=== PATIENT | female | born 1995 | race Caucasian/White ===

== ENCOUNTER 2018-04-02 13:05 | Inpatient (IN) | payer SELFPAY ==
[2018-04-02 13:24] VITALS: BMI 34.0
[2018-04-02 14:20] LABS: Hematocrit 37.7 % (37-47); Hemoglobin 12.3 g/dl (12.0-15.0); Mean Corp Hgb Conc 32.6 g/gl (32-36); Mean Corpuscular Hgb 28.7 pg (27.0-32.0); Mean Corpuscular Volume 88.1 fL (81-99); Mean Platelet Vol. 10.2 fl (6.2-12.0); Platelet Count 237 K/mm3 (150-450); RBC Distribution Width CV 13.6 % (11.6-14.6); RBC Distribution Width SD 43.7 fl (35.1-43.9); Red Blood Count 4.28 M/mm3 (4.2-5.4); White Blood Count 10.4 K/mm3 (4.4-11.0)
[2018-04-02 14:30] LABS: Scan Indicated on CBC? Y/N NO
[2018-04-02] MEDS: Lactated Ringers 1,000 ML 50 ML IV ×3 (14:47→19:45)
[2018-04-02] MEDS: fentaNYL-bupivacaine (epidural) 100 ML BAG EPIDURAL ×2 (15:25→19:43)
[2018-04-02] MEDS: Oxytocin 30 units/NS 500 ml 30 UNITS/500 ML IV.SOLN IV (15:52)
[2018-04-02 18:02] LABS: HIV - WCH Non-Reactive (Nonreactive)
--- NOTE | 2018-04-02 18:26 | PCM.PN.BLA ---
Progress Note LABOR PROGRESS NOTE No complaints. She is comfortable with epidural. AVSS GEN - NAD, AAO x 3 FHR 140, moderate variability, +accelerations, no decelertaions. TOCO 4/10 min SVE 2.5-3cm/75/-2, soft and midposition A/P: 22yo G1 @ 42 5/7wga for IOL with Cat I FHR -Butler bulb placed for further cervical ripening with 60cc NS - Continue pitocin as tolerated by mother and fetus -Maternal and statuses reassuring
[2018-04-02 18:32] LABS: Chlamydia Trachomatis by PCR Negative (Negative); Neisserai gonorrhoeae by PCR Negative (Negative); Probe Check PASS; Sample Adequacy Control PASS; Specimen Processing Control PASS
[2018-04-03] MEDS: Lactated Ringers 1,000 ML 50 ML IV (01:01)
--- NOTE | 2018-04-03 02:29 | PCM.PN.BLA ---
Progress Note LABOR PROGRESS NOTE Patient sleeping comfortably. AVSS GEN - NAD, AAO x 3 SVE 9/90/+2 per RN W Jay TOCO 4/10 min FHR 140, moderate variability, no accelerations, no decelerations A/P: 22yo G1 @ 42 6/7wga in labor, Cat II FHR -Will continue pitocin as tolerated by mother and fetus -Will plan to wake patient for repeat exam approximately 0300h.
--- NOTE | 2018-04-03 02:45 | PCM.PN.BLA ---
Progress Note LABOR PROGRESS NOTE Trisha is without complaints. AVSS GEN - NAD, AAO x 3 FHR 140, minimal variability, + variable decelerations, no accelerations TOCO 4/10 min SVE 9/90/+2 by my exam, cephalic A/P: 22 yo G1 @ 42 6/7wga in labor on pitocin, Cat II FHR -Will continue to monitor -Reassess cervical exam in 1-2 hours
[2018-04-03] MEDS: Ondansetron 4 MG/2 ML Vial IV (04:38)
[2018-04-03] MEDS: Oxytocin 30 units/NS 500 ml 30 UNITS/500 ML IV.SOLN 334 UNITS IV (04:45)
[2018-04-03] MEDS: Oxytocin 30 units/NS 500 ml 30 UNITS/500 ML IV.SOLN 167 UNITS IV (05:15)
--- NOTE | 2018-04-03 05:19 | PCM.OB.VAG ---
- Problem List (1) 42 weeks gestation of Status: Acute (2) Meconium in amniotic fluid Status: Acute (3) Vacuum extraction, delivered, current hospitalization Status: Acute Vaginal Delivery Maternal Presentation: Medically Indicated Induction Method of Induction: Pitocin Amniotic Membrane Rupture Type: Spontaneous Rupture of Membrane time: 04/03/18 0125h Amniotic Fluid Description: Thick meconium Final MARY: 03/14/18 Final MARY Source: US <20 weeks Gestational age: 43 Weeks and 1 Days Date of Procedure: 04/03/18 Pre-Operative Diagnosis: 42 6/7 wga, meconium Post-Operative Diagnosis: 42 6/7 wga, meconium Surgery/ Procedure Performed: Spontaneous Vaginal Delivery Anesthesiologist: Yuko Monzon Type of Anesthesia: Epidural Description of Procedure: Patient was FD/+3 station with tachycardia, Cat II FHR. By this time, pitocin had been previously discontinued and oxygen was administered. I advised her to proceed with vacuum delivery at this time for Cat II FHR. Reviewed with patient and indications, risks, benefits. Patient agreed to proceed. By my exam and fetus was OA and a bedside US was performed with confirmation of position. The vacuum was placed at the flexion point with suction applied to 500mmHg. The patient pushed to her preference with and without contractions. There were no vacuum pop-offs and 6 pulls with excellent descent and of the infant head. The vacuum was removed and the head delivered in [place]. A nuchal cord was reduced. The patient had waning effort, the anterior shoulder did not deliver beyond the acromnion and the patient became disorganized. Julian was employed and I subsequently attempted to deliver the posterior shoulder without success. I subsequently performed the Mills maneuver which was followed by spontaneous resolution and delivery of the . The had poor tone and limited respiratory effort. Thus, the cord was immediately clamped and cut and the infant transferred to the stabilette with the awaiting Pediatric Hospitalist, nursery personnel and respiratory therapist. Cord gases and cord blood specimen were obtained. The placenta delivered spontaneously after approximately 35 minutes and appeared intact on inspection. I attemped an intrauterine exam however the uterus had significantly clamped down with excellent tone and only the lower uterine segment was palpable. Few small clots were removed and the lower segment was palpably intact. There was no hemorrhage present. A first degree vaginal laceration with left labial extension was repaired with 3-0 Vicryl Rapide with improved hemostasis. Sponge counts were correct x 2. Infant weight 3930g Presentation: Vertex Placental Delivery Description: Spontaneous Placenta Disposition: [facility] Cord Vessel Description: 3 Vessels Nuchal Cord Compression: Without compression Cord Gases drawn per routine: ABG, VBG Cord Entanglement: Around neck x 1, loose Drain: Butler to straight drain Estimated Blood Loss: 300 ml A gender: Female (1 minute): 3 (5 minute): 8 - 9 at 10 minutes of life Laceration: Midline, Vaginal Extension/lac, 1st degree Medications given after delivery: IV Pitocin Complications: None
--- NOTE | 2018-04-03 05:47 | DCINST_ITS ---
Discharge Diet: No Restrictions Discharge Activity: Return to Normal Activity, May Shower May resume sexual activity in: 6 weeks Call your doctor if your incision/area has: Continuous Slow Oozing, Sudden Increased Bleeding, Increased Pain/ Swelling, Increased Redness, Foul Smelling Discharge Call your doctor if you observe: Fever of 101 or Higher, Inability to urinate, Inability to have a bowel movement, Using more than one pad per hour, Shortness of breath, Chest pain, Calf discomfort, Uncontrolled pain Additional Instructions: If you experience any of the following, contact your healthcare provider. * Bleeding that soaks a pad every hour for 2 hours * Fever 100.4 or higher * Unrelieved incision or abdominal pain * Swelling, redness, discharge or bleeding from your incision or episiotomy site * Your incision begins to separate * Problems urinating (including inability to urinate or burning while urinating) . * Visual changes * Severe headache * Flu-like symptoms * Pain or redness in one of both of your breasts * Pain, warmth, tenderness or swelling in your legs, especially the calf area * Frequent nausea and vomiting * Symptoms of depression or anxiety If you experience any of the following, call 911 or go to the nearest Emergency Room. * Chest pain * Problems breathing * Seizure activity * Partial or complete paralysis of a body part, slurred speech, weakness or drooping of the face, or a sudden inability to walk or hold your balance Allergies/Adverse Reactions: Allergies No Known Allergies Allergy (Unverified 04/02/18 14:16) Medications to take at Discharge Vits [Prenatabs FA ] 1 tab PO DAILY 04/02/18 Ibuprofen 600 mg PO TID PRN #30 tab 04/03/18 The following prescriptions were given: Ibuprofen 600 mg PO TID PRN #30 tab PRN Reason: Pain Please Follow Up With: Tanya Post MD Primary Care Physician: Tristan Larson DO [Primary Care Provider] - Test Results: Test results from this visit will be discussed in further detail at your follow- up appointment, if applicable.
[2018-04-03] MEDS: Ibuprofen 600 MG Tablet PO (06:42)
[2018-04-03 08:00] VITALS: BP 111/59; PULSE 83; RESP 18; TEMP 36.6; O2SAT 96
--- NOTE | 2018-04-03 09:30 | CASEMGMT ---
Social Work Note See attached assessment. Face to face with pt as requested via consult. Introduced self and role at [facility]. The MOB reports to live with her spouse of one year in a two-story home with significant family support locally. Claims to have completed 8th grade and is able to read/write. MOB is of [facility] affiliation and has supports through her community. Educate to area resources such as JFS, Counseling and HMG and MOB declines. Information provided and pt made aware that SW is available if she changes her mind. MOB appropriate with throughout assessment and is planning to breast feed. At this time nursing states they do not know that she is not receiving teachings as she only had the infant this morning. At this time SW does not have concerns with MOB and infant returning home. MOB denies a hx of mental health diagnoses. Review symptoms of anxiety/depression and MOB indicates symptoms of depression. States that she talks to her when she feels this way and it manages the symptoms. Educate to counseling and the pt declines. Educate to PPD and provide with information. MOB expresses understanding. Discuss HMG services and MOB declines this as well. Again, provide with the information and make MOB aware that SW is available if needs arise. Plan: Home Fide Anderson, GATE WATCHMAN, SENIOR GAME DESIGNER
[2018-04-03] MEDS: Prenatal Vits Tablet 1 TABLET PO (11:04)
[2018-04-03 11:23] VITALS: BP 90/51; PULSE 69; RESP 16; TEMP 36.4; O2SAT 97
[2018-04-03 16:00] VITALS: BP 138/70; PULSE 86; RESP 18; TEMP 36.7; O2SAT 97
[2018-04-03 20:15] VITALS: BP 130/62; PULSE 93; RESP 16; TEMP 37.5
[2018-04-03 23:30] VITALS: BP 118/66; PULSE 101; RESP 16; TEMP 37.2
[2018-04-04 04:20] VITALS: BP 110/59; PULSE 82; RESP 16; TEMP 37.7
[2018-04-04] MEDS: Acetaminophen 325 MG Tablet PO (04:28)
[2018-04-04 06:10] VITALS: TEMP 36.4
[2018-04-04 08:45] VITALS: BP 102/55; PULSE 75; RESP 16; TEMP 36.6
--- NOTE | 2018-04-04 09:34 | PCM.PN.BLA ---
Progress Note Visited patient room. Patient in shower. Will return to assess.
--- NOTE | 2018-04-04 09:57 | PCM.PN.OB ---
Patient Problems: Active and Suspected Problems 42 weeks gestation of (Acute) Meconium in amniotic fluid (Acute) Vacuum extraction, delivered, current hospitalization (Acute) Subjective: No issues overnight. She is voiding without discomfort and has no complaints. She is . Objective: avss - Physical Exam General: Alert, Oriented x3, Cooperative HEENT: Atraumatic, Normocephalic Lungs: Clear to auscultation, Normal air movement Cardiovascular: Regular rate, Regular Rhythm, Normal S1, Normal S2 Abdomen: Bowel Sounds Present, Soft, Non Tender, - - Fundus firm and nontender, lochia moderate Extremities: No edema, No Calf Tenderness Neurological: Neuro grossly intact Psych/Mental Status: Normal Affect, Appropriate, Alert and oriented to time, place, person, mood and affect Vital Signs Temp Pulse Resp BP Pulse Ox 97.9 F 75 16 102/55 L 97 04/04/18 08:45 04/04/18 08:45 04/04/18 08:45 04/04/18 08:45 04/03/18 16:00 Oxygen Delivery Method Room Air Weight: 89.981 kg Body Mass Index (BMI) 34.0 Intake and Output for Last 24 Hours 04/02/18 04/03/18 04/04/18 23:59 23:59 23:59 Intake Total 2250 / 2250 4615 / 4615 Output Total 750 / 750 3200 / 3200 Balance 1500 / 1500 1415 / 1415 Medical Necessity - Tobacco Use Smoking Status: Never smoker Assessment/Plan All Active Problems 42 weeks gestation of (Acute) Meconium in amniotic fluid (Acute) Vacuum extraction, delivered, current hospitalization (Acute)
[2018-04-04 14:00] VITALS: BP 113/59; PULSE 82; RESP 16; TEMP 37
[2018-04-04] MEDS: Prenatal Vits Tablet 1 TABLET PO (19:04)
[2018-04-04 19:45] VITALS: BP 116/59; PULSE 85; RESP 18; TEMP 36.8
[2018-04-05 02:20] VITALS: BP 109/56; PULSE 74; RESP 16; TEMP 36.9
[2018-04-05 08:31] VITALS: BP 102/63; PULSE 90; RESP 16; TEMP 36.8; O2SAT 96
--- NOTE | 2018-04-05 08:38 | PCM.PN.OB ---
Patient Problems: Active and Suspected Problems 42 weeks gestation of (Acute) Meconium in amniotic fluid (Acute) Vacuum extraction, delivered, current hospitalization (Acute) Subjective: No issues overnight. c/o cramping this morning. continues to nurse well. Objective: avss - Physical Exam General: Alert, Oriented x3, Cooperative HEENT: Atraumatic, Normocephalic Lungs: Clear to auscultation, Normal air movement Cardiovascular: Regular rate, Regular Rhythm, Normal S1, Normal S2 Abdomen: Soft, Non Tender, Non-Distended, - - Fundus firm and nontender, lochia moderate Extremities: No edema, No Calf Tenderness Neurological: Neuro grossly intact Psych/Mental Status: Normal Affect, Appropriate, Alert and oriented to time, place, person, mood and affect Vital Signs Temp Pulse Resp BP Pulse Ox 98.2 F 90 16 102/63 96 04/05/18 08:31 04/05/18 08:31 04/05/18 08:31 04/05/18 08:31 04/05/18 08:31 Oxygen Delivery Method Room Air Weight: 89.981 kg Body Mass Index (BMI) 34.0 Intake and Output for Last 24 Hours 04/03/18 04/04/18 04/05/18 23:59 23:59 23:59 Intake Total 4615 / 4615 Output Total 3200 / 3200 Balance 1415 / 1415 Medical Necessity - Tobacco Use Smoking Status: Never smoker Assessment/Plan All Active Problems 42 weeks gestation of (Acute) Meconium in amniotic fluid (Acute) Vacuum extraction, delivered, current hospitalization (Acute) 22yo PPD#2 s/p VAVD doing well. -Rh positive -Routine care -Case management consultation pending -D/C home today
[2018-04-05] MEDS: Prenatal Vits Tablet 1 TABLET PO (11:49)
[2018-04-05 11:52] VITALS: BP 114/59; PULSE 86; RESP 18; TEMP 36.4; O2SAT 99
== END 2018-04-05 13:35 | disposition home or self-care (01) | DRG 775 ==
PROVIDERS: Admitting Provider Obstetrics & Gynecology; Family Provider Family Medicine; PCP Family Medicine; Visit Provider Obstetrics & Gynecology
DX: O76 Abnormality in fetal heart rate and rhythm complicating labor and delivery (principal); O70.0 First degree perineal laceration during delivery; O69.81X0 Labor and delivery complicated by cord around neck, without compression, not applicable or unspecified; Z37.0 Single live birth; O48.1 Prolonged pregnancy; O77.0 Labor and delivery complicated by meconium in amniotic fluid; Z3A.49 Greater than 42 weeks gestation of pregnancy
CPT/HCPCS: 59025; 59050; 76815; 85027; 86703; 86850; 86900; 87491; 87591; 99218; J7050; J7120; G0378; J2405

== ENCOUNTER → 2019-07-20 16:41 | Outpatient (CLI) | payer SELFPAY ==
[2019-07-20 17:36] LABS: Color, Urine Yellow (Yellow); Glucose, Dipstick Normal (Normal); Ketone-Dipstick 5 mg/dl (Negative); Leukocyte Esterase-Dipstick 500 /ul (Negative); Nitrite-Dipstick Negative (Negative); Occult Blood-Urine Negative /ul (Negative); Protein-Dipstick Negative (Negative); Urine Bilirubin Dipstick Negative (Negative); Urine Clarity Clear (Clear); Urine Urobilinogen Normal (Normal)
[2019-07-20 17:40] LABS: Absolute Lymphocyte Count 1.66 X10^3/uL (0.83-4.51); Absolute Neutrophil Count 6.9 X10^3/uL (2.0-7.7); Basophil# 0.03 X10^3/uL; Basophil% 0.3 % (0-1); Eosinophil# 0.17 X10^3/uL; Eosinophils% 1.8 % (0-5); Hematocrit 35.4 % (37-47); Hemoglobin 11.7 g/dL (12.0-15.0); Lymphocyte # 1.66 X10^3/ul (4.0); Lymphocyte % 17.8 % (19-41); Mean Corp Hgb Conc 33.1 g/dL (32-36); Mean Corpuscular Hgb 27.7 pg (27.0-32.0); Mean Corpuscular Volume 83.9 fL (81-99); Mean Platelet Vol. 9.7 fl (6.2-12.0); Monocyte# 0.53 X10^3/uL; Monocyte% 5.7 % (0-10); NRBC Flagged by Analyzer 0 % (0-5); Platelet Count 280 K/mm3 (150-450); RBC Distribution Width CV 13.1 % (11.6-14.6); RBC Distribution Width SD 39.7 fl (35.1-43.9); Red Blood Count 4.22 M/mm3 (4.2-5.4); White Blood Count 9.3 K/mm3 (4.4-11.0)
[2019-07-20 18:16] LABS: Thyroid Stim Hormone (TSH) 0.82 uIU/mL (0.358-3.74)
[2019-07-20 18:19] LABS: Amphetamine Urine VISTA NEGATIVE (<1000 ng/mL); Barbiturate Urine VISTA NEGATIVE (< 200 ng/mL); Benzodiazepine Urine VISTA NEGATIVE (< 200 ng/mL); Cocaine Urine VISTA NEGATIVE (< 300 ng/mL); Ecstacy Urine VISTA NEGATIVE (< 500 ng/mL); Methadone Urine VISTA NEGATIVE (< 300 ng/mL); PCP Urine VISTA NEGATIVE (< 25 ng/mL); THC Urine VISTA NEGATIVE (< 50 ng/mL); Vista UDS pH Range 5
[2019-07-20 21:28] LABS: Chlamydia Trachomatis by PCR Negative (Negative); Neisserai gonorrhoeae by PCR Negative (Negative); Probe Check PASS; Sample Adequacy Control PASS; Specimen Processing Control PASS
[2019-07-21 10:15] LABS: HIV - WCH Non-Reactive (Nonreactive); Hepatitis B Surface Antigen Non-Reactive (Nonreactive); Hepatitis C Antibody Non-Reactive (Nonreactive); Rubella IgG > 500.0 IU/mL
[2019-07-22 02:37] LABS: Prenatal RPR NONREACTIVE (NONREACTIVE)
== END ==
PROVIDERS: Visit Provider Obstetrics & Gynecology
DX: Z11.3 Encounter for screening for infections with a predominantly sexual mode of transmission (principal); Z34.82 Encounter for supervision of other normal pregnancy, second trimester
CPT/HCPCS: 36415; 80307; 81002; 84443; 85025; 86703; 86762; 86803; 87340; 87491; 87591

== ENCOUNTER → 2019-09-14 09:49 | Outpatient (CLI) | payer SELFPAY ==
[2019-09-14 10:44] LABS: Hematocrit 35.8 % (37-47); Hemoglobin 11.6 g/dL (12.0-15.0); Mean Corp Hgb Conc 32.4 g/dL (32-36); Mean Corpuscular Hgb 28.5 pg (27.0-32.0); Mean Platelet Vol. 9.3 fl (6.2-12.0); Platelet Count 266 K/mm3 (150-450); RBC Distribution Width CV 13.9 % (11.6-14.6); Red Blood Count 4.07 M/mm3 (4.2-5.4); White Blood Count 8.8 K/mm3 (4.4-11.0)
[2019-09-14 11:00] LABS: Glucose Challenge Gest 1H 50g 62 mg/dL (70-140)
== END ==
PROVIDERS: Visit Provider Obstetrics & Gynecology
DX: Z34.82 Encounter for supervision of other normal pregnancy, second trimester (principal)
CPT/HCPCS: 36415; 82950; 85027

== ENCOUNTER → 2019-11-16 | Outpatient (CLI) | payer SELFPAY | END | disposition home or self-care (01) | LOC: LABSPEC 16:53 | PROVIDERS: Visit Provider Obstetrics & Gynecology | DX: Z36.85 Encounter for antenatal screening for Streptococcus B (principal) | CPT/HCPCS: 87081 ==

== ENCOUNTER 2019-12-07 15:00 | Inpatient (IN) | payer SELFPAY ==
[2019-12-07 15:30] VITALS: BMI 37.9
[2019-12-07] MEDS: Lactated Ringers 1,000 ML 50 ML IV (15:45)
[2019-12-07 15:52] VITALS: BP 108/57; PULSE 74; TEMP 36.6
[2019-12-07 16:03] LABS: Absolute Lymphocyte Count 1.41 X10^3/uL (0.83-4.51); Basophil# 0.02 X10^3/uL; Basophil% 0.2 % (0-1); Eosinophil# 0.09 X10^3/uL; Eosinophils% 1.1 % (0-5); Hematocrit 38.6 % (37-47); Hemoglobin 12.8 g/dL (12.0-15.0); Lymphocyte # 1.41 X10^3/ul (4.0); Lymphocyte % 16.9 % (19-41); Mean Corp Hgb Conc 33.2 g/dL (32-36); Mean Corpuscular Hgb 28.1 pg (27.0-32.0); Mean Corpuscular Volume 84.8 fL (81-99); Monocyte# 0.77 X10^3/uL; Monocyte% 9.2 % (0-10); NRBC Flagged by Analyzer 0 % (0-5); Neutrophil # 6.02 X10^3/uL (2.7-7.7); Neutrophil % 72.2 % (47-70); Platelet Count 335 K/mm3 (150-450); RBC Distribution Width CV 13.7 % (11.6-14.6); RBC Distribution Width SD 42.4 fl (35.1-43.9); Red Blood Count 4.55 M/mm3 (4.2-5.4); White Blood Count 8.3 K/mm3 (4.4-11.0)
[2019-12-07 16:50] VITALS: BP 113/58; PULSE 78
[2019-12-07 17:11] VITALS: BP 108/53; PULSE 81
[2019-12-07] MEDS: miSOPROStol 25 MCG TABLET VAGINAL (17:11)
--- NOTE | 2019-12-07 18:10 | HP.PCM_ITS ---
- Problem List (1) 39 weeks gestation of Status: Acute (2) Oligohydramnios Status: Acute Qualifiers: Fetus number: single or unspecified fetus Trimester: third trimester Qualified Code(s): O41.03X0 - Oligohydramnios, third trimester, not applicable or unspecified Comment: decreased FM. History Date of Admission: 12/07/19 Final MARY: 12/09/19 Final MARY Source: US <20 weeks Gestational age: 39 Weeks and 5 Days History of this : This is a 24 year-old, G [2], P [1], at 39 5/7 weeks gestational age sent from office with 2 weeks of persistent decreased FM and oligohydramnios with MARY 5cm. Medical History: Medical History (Last Updated 12/07/19 @ 18:[address] Tanya Post MD) Seasonal allergies J30.2 Allergies No Known Allergies Allergy (Unverified 12/07/19 15:34) Home Medications: Home Medications Vits [Prenatabs FA ] 1 tab PO 4X/DAY 04/02/18 Smoking Status: Former smoker Alcohol: None Number of Fetus(es): 1 NST - FHR Rate Baby A Baseline: 150 Variability:: Moderate Accelerations:: 15 x 15 Decelerations:: None NST Reactive:: Yes FHR Category:: Category I Uterine Activity:: 0/10 History Past Pregnancies: Past Pregnancies Delivery Date Name GA/ Weeks Outcome Route Wt Sex Labor Length Anesthesia Delivery Location Provider FOB 03/2018 sharon 42 Living VAVD [id number] F 12 Epidural [facility] Nilda Valadez Labs: Mom's Problem List Problem Status Onset Code 39 weeks gestation of Acute Z3A.39 Oligohydramnios Acute O41.00X0 Mom's Labs & Results 12/07/19 12/07/19 15:45 15:45 WBC 8.3 RBC 4.55 Hgb 12.8 Hct 38.6 MCV 84.8 MCH 28.1 MCHC 33.2 RDW Std Deviation 42.4 RDW Coeff of [place] 13.7 Plt Count 335 MPV 10.0 Immature Gran % (Auto) 0.400 Neut % (Auto) 72.2 H Lymph % (Auto) 16.9 L [place] % (Auto) 9.2 Eos % (Auto) 1.1 Baso % (Auto) 0.2 Absolute Neuts (auto) 6.0 Absolute Lymphs (auto) 1.41 Nucleated RBC % 0 Blood Type O POSITIVE Antibody Screen NEGATIVE Course Did the patient receive Yes care? Labs Blood Type: O RH: POSITIVE RPR/VDRL/Syphilis Nonreactive Rubella status Immune HbSAg Negative Date Done: 07/20/19 Chlamydia Negative Gonorrhea Negative HIV/AIDS Non-Reactive Group B Strep: Negative Current Obstetrical History Gestational Diabetes No Incompetent Cervix No Infertility No IUGR No Macrosomia No Hypertension/Pre-eclampsia No Placenta Previa/Abruption No PTL/PROM No Uterine anomaly No Oligohydramnios Yes Polyhydramnios No Multiple gestation No Past Medical History Asthma No Diabetes No Hypertension No Heart disease No Mitral valve prolapse No Neurologic/Seizure disorder/ No Migraines Kidney disease No Liver disease No Varicosities No Clotting disorders/Hx of DVT No Thyroid Dysfunction No Other medical diseases No Psychiatric disorders No Major trauma No Abnormal PAP smear No Sleep apnea No Mammogram in the last 2 years No Medications Taken During Dose/Freq.: [GentleBirth] 2-3x a day Last Date/Time of Medication 12/07/2019 Taken: [GentleBirth] Reason for taking medication [ GentleBirth] Social History Marital Status: Alleged father Rory Mcdaniel Hx Smoking No Smoking Status Former smoker Expected Delivery Method: Spontaneous Vaginal Number of Visits: 10 Physical Exam Vitals: Vital Signs Temp Pulse BP 97.8 F 81 108/53 L 12/07/19 15:52 12/07/19 17:11 12/07/19 17:11 General: Alert, Oriented x3, Cooperative, No apparent distress HEENT: Atraumatic, Normocephalic Cardiovascular: Regular rate, Regular Rhythm Lungs: Clear to auscultation, Normal air movement Abdomen: Soft, Non Tender, Non-Distended, Gravid Extremities:: No edema Neurological: Neuro grossly intact SENIOR TECHNICAL SUPPORT ANALYST: Normal external genitalia Estimated gestational size: Appropriate for gestational size Presentation: Cephalic Cervix Dilation (cm): 2 Station: -3 Effacement (%): 25 Assessment/Plan All Active Problems (Last Updated 12/07/19 @ 18:[address] Tanya Post MD) 39 weeks gestation of (Acute) Oligohydramnios (Acute) This is a 24 year-old, G [2], P [1], at 39 5/7 weeks gestational age with oligohydramnios, decreased FM for induction of labor. -Cat I FHR -Cytotec induction -Continuous monitoring
[2019-12-07 18:23] VITALS: BP 113/55; PULSE 86; TEMP 36.7
[2019-12-07 19:27] VITALS: BP 113/59; PULSE 77; PULSE 82; TEMP 37.3; O2SAT 97
[2019-12-07 21:10] VITALS: BP 115/67; PULSE 81; PULSE 82; TEMP 37.1; O2SAT 96
[2019-12-07] MEDS: Lactated Ringers 500 ML 999 ML IV (21:34)
[2019-12-08] VITALS (54 sets, daily range): BP systolic 85–153; BP diastolic 44–75; PULSE 67–146; RESP 16–18; TEMP 36.2–37.6; O2SAT 81–100
[2019-12-08] MEDS: miSOPROStol 50 MCG TABLET VAGINAL (01:53)
[2019-12-08] MEDS: fentaNYL 100 MCG/2 ML Ampul IV (04:56)
--- NOTE | 2019-12-08 06:39 | PCM.PN.BLA ---
Progress Note LABOR PROGRESS NOTE Patient reports discomfort with contractions. AVSS GEN - NAD, AAO x 3 FHR 140, moderate variability, + accelerations, no decelerations TOCO 3/10 min 4/50/-3, moderate and midposition A/P: 24yo @ 39 6/7wga, IOL with oligohydramnios, decreased FM, Cat I FHR --Amniotomy performed with scant, clear fluid --Will start pitocin if not in active labor 6 hours after last cytotec (approx 0830h) --Maternal and status reassuring STROKE Vital Signs/Narrative: Vital Signs Temp Pulse BP Pulse Ox 12/08/19 05:09 97.9 F 68 141/71 H 96 12/08/19 04:26 97.7 F L 69 129/59 H 97
[2019-12-08] MEDS: Lactated Ringers 500 ML 999 ML IV ×2 (06:51→08:35)
[2019-12-08] MEDS: fentaNYL-bupivacaine (epidural) 100 ML BAG EPIDURAL (08:24)
[2019-12-08] MEDS: ePHEDrine Sulfate 50 MG/ML Ampul 10 MG IV (08:37)
[2019-12-08] MEDS: ePHEDrine Sulfate 50 MG/ML Ampul 10 MG IM (08:38)
[2019-12-08] MEDS: Lactated Ringers 1,000 ML 200 ML IV (08:40)
[2019-12-08] MEDS: Oxytocin 30 units/NS 500 ml 30 UNITS/500 ML IV.SOLN 334 UNITS IV (12:48)
--- NOTE | 2019-12-08 13:00 | PCM.OPRPT ---
Problem List (1) 39 weeks gestation of Status: Acute (2) Oligohydramnios Status: Acute Qualifiers: Fetus number: single or unspecified fetus Trimester: third trimester Qualified Code(s): O41.03X0 - Oligohydramnios, third trimester, not applicable or unspecified Comment: decreased FM. Vaginal Delivery Maternal Presentation: Medically Indicated Induction Method of Induction: Amniotomy, Cytotec Medical Reason for Induction: - - oligohydramnios, decreased movement Rupture of Membrane time: 0635h 12/08/19 Amniotic Fluid Description: Clear Final MARY: 12/09/19 Final MARY Source: US >20 weeks Gestational age: 39 Weeks and 6 Days Date of Procedure: 12/08/19 Pre-Operative Diagnosis: 39 6/7wga, oligohydramnios Post-Operative Diagnosis: 39 6/7wga, oligohydramnios Surgery/ Procedure Performed: Spontaneous Vaginal Delivery Anesthesiologist: Dinesh Tran Type of Anesthesia: Epidural Description of Procedure: Patient was FD/+4 on my arrival. Pushed to deliver in [place]. mouth and nares suctioned on perineum. Shoulder delivered with ease to reveal a vigorous male . The was place don the maternal abdomen and further attended by nursery personnel. The cord was doubly clamped and cut at approximately 3 minutes of life. Cord blood specimen obtained. The placenta delivered spontaneously and appeared intact on inspection. First degree perineal laceration repaired with 3-0 Vicryl Rapide. Excellent hemostasis and fundus firm at the umbilicus. Presentation: Vertex Placental Delivery Description: Spontaneous Placenta Disposition: [facility] Cord Vessel Description: 3 Vessels Nuchal Cord Compression: Without compression Cord Entanglement: None Estimated Blood Loss: 300 ml A gender: Male (1 minute): 8 (5 minute): 9 Episiotomy Description: None Laceration: Midline, Perineal Extension/lac, 1st degree Medications given after delivery: IV Pitocin Complications: None
[2019-12-08] MEDS: Acetaminophen 500 MG Tablet 1000 MG PO (22:47)
[2019-12-09 00:44] VITALS: BP 111/53; PULSE 73; RESP 18; TEMP 36.1
[2019-12-09 04:28] VITALS: BP 104/59; PULSE 66; RESP 18; TEMP 36.2
--- NOTE | 2019-12-09 06:52 | PCM.PN.OB ---
Patient Problems: Active and Suspected Problems (Last Updated 12/07/19 @ 18:[address] Tanya Post MD) 39 weeks gestation of (Acute) Oligohydramnios (Acute) decreased FM. Subjective: No issues overnight. Reports cramping intermittently, but tolerable. Denies heavy lochia. latched and nursed well yesterday. Requests discharge to home today. Objective: AVSS - Physical Exam Vitals/I&O's: Vital Signs Temp Pulse Resp BP Pulse Ox 97.1 F L 66 18 104/59 L 97 12/09/19 04:28 12/09/19 04:28 12/09/19 04:28 12/09/19 04:28 12/08/19 15:51 Oxygen Delivery Method Room Air Weight: 94 kg Body Mass Index (BMI) 37.9 Intake and Output for Last 24 Hours 12/07/19 12/08/19 12/09/19 23:59 23:59 23:59 Intake Total 1557.23 / 1557.23 4941.66 / 4941.66 Output Total 975 / 975 4400 / 4400 Balance 582.23 / 582.23 541.66 / 541.66 General: Alert, Oriented x3, Cooperative, No apparent distress HEENT: Atraumatic, Normocephalic Lungs: Clear to auscultation, Normal air movement Cardiovascular: Regular rate, Regular Rhythm, Normal S1, Normal S2 Abdomen: Soft, Non Tender, Non-Distended, - - Fundus firm and nontender, lochia moderate Extremities: No edema, No Calf Tenderness Neurological: Neuro grossly intact Psych/Mental Status: Normal Affect, Appropriate, Alert and oriented to time, place, person, mood and affect Current Medications Acetaminophen (Tylenol) 1,000 mg PO Q8H PRN PRN PRN Reason: Pain Score 1-3/10 Last Admin: 12/08/19 22:47 Dose: 1,000 mg Documented by: Bisacodyl (Dulcolax) 10 mg RECTAL UD PRN PRN Reason: If no BM Dibucaine (Dibucaine) 1 applic TOPICAL TID PRN PRN; Protocol PRN Reason: Discomfort Hydrocortisone (Hytone) 1 applic TOPICAL TID PRN PRN; Protocol PRN Reason: Discomfort Ibuprofen (Motrin) 600 mg PO Q6H PRN PRN PRN Reason: Pain Score 1-3/10 Methylergonovine Maleate (Methergine) 0.2 mg IM X1 PRN PRN Reason: Excess bleeding/uterine atony Ondansetron HCl (Zofran) 4 mg IV Q4H PRN PRN PRN Reason: NAUSEA Senna/Docusate Sodium (Senokot-S, Paty-Colace) 1 - 2 tablet PO DAILY PRN PRN PRN Reason: Constipation Simethicone (Mylicon) 80 mg PO PCHS PRN PRN Reason: Indigestion/Stomach pain Sodium Chloride () 5 - 15 ml IV UD PRN PRN Reason: SALINE FLUSH Medical Necessity - Tobacco Use Smoking Status: Former smoker Assessment/Plan All Active Problems (Last Updated 12/07/19 @ 18:[address] Tanya Post MD) 39 weeks gestation of (Acute) Oligohydramnios (Acute) This is a 24 year-old, G [2], P [2] PPD#1 s/p doing well. -Rh positive - -Routine care -Plan for d/c home this afternoon if infant cleared
--- NOTE | 2019-12-09 06:57 | DCINST_ITS ---
Discharge Diet: No Restrictions Discharge Activity: Return to Normal Activity, May Shower, May Take a Tub Bath May resume sexual activity in: 4-6 weeks Lifting Restrictions: 10-20 lb Suture Line Care: Avoid Pulling/Pushing Additional Instructions: If you experience any of the following, contact your healthcare provider. * Bleeding that soaks a pad every hour for 2 hours * Fever 100.4 or higher * Unrelieved incision or abdominal pain * Swelling, redness, discharge or bleeding from your incision or episiotomy site * Your incision begins to separate * Problems urinating (including inability to urinate or burning while urinating). * Visual changes * Severe headache * Flu-like symptoms * Pain or redness in one of both of your breasts * Pain, warmth, tenderness or swelling in your legs, especially the calf area * Frequent nausea and vomiting * Symptoms of depression or anxiety If you experience any of the following, call 911 or go to the nearest Emergency Room. * Chest pain * Problems breathing * Seizure activity * Partial or complete paralysis of a body part, slurred speech, weakness or drooping of the face, or a sudden inability to walk or hold your balance You may take an over the counter pain medication such as Naproxen (Aleve) or Ibuprofen (Motrin or Advil) for pain. Allergies/Adverse Reactions: Allergies No Known Allergies Allergy (Unverified 12/07/19 15:34) Medications to take at Discharge Vits [Prenatabs FA ] 1 tab PO 4X/DAY 04/02/18 Please Follow Up With: Tanya Post MD When: 6 weeks Primary Care Physician: Care Physician,No Primary [Primary Care Provider] - Test Results: Test results from this visit will be discussed in further detail at your follow- up appointment, if applicable.
--- NOTE | 2019-12-09 06:57 | PCM.DCVAG ---
Discharge Diet: No Restrictions Discharge Activity: Return to Normal Activity, May Shower, May Take a Tub Bath May resume sexual activity in: 4-6 weeks Lifting Restrictions: 10-20 lb Suture Line Care: Avoid Pulling/Pushing Additional Instructions: If you experience any of the following, contact your healthcare provider. Bleeding that soaks a pad every hour for 2 hours Fever 100.4 or higher Unrelieved incision or abdominal pain Swelling, redness, discharge or bleeding from your incision or episiotomy site Your incision begins to separate Problems urinating (including inability to urinate or burning while urinating). Visual changes Severe headache Flu-like symptoms Pain or redness in one of both of your breasts Pain, warmth, tenderness or swelling in your legs, especially the calf area Frequent nausea and vomiting Symptoms of depression or anxiety If you experience any of the following, call 911 or go to the nearest Emergency Room. Chest pain Problems breathing Seizure activity Partial or complete paralysis of a body part, slurred speech, weakness or drooping of the face, or a sudden inability to walk or hold your balance You may take an over the counter pain medication such as Naproxen (Aleve) or Ibuprofen (Motrin or Advil) for pain. Allergies/Adverse Reactions: Allergies No Known Allergies Allergy (Unverified 12/07/19 15:34) Medications to take at Discharge Vits [Prenatabs FA ] 1 tab PO 4X/DAY 04/02/18 Please Follow Up With: Tanya Post MD When: 6 weeks Primary Care Physician: Care Physician,No Primary [Primary Care Provider] - Test Results: Test results from this visit will be discussed in further detail at your follow-up appointment, if applicable.
[2019-12-09 08:17] VITALS: BP 116/53; PULSE 72; RESP 16; TEMP 36.1; O2SAT 96
[2019-12-09 14:15] VITALS: BP 114/56; PULSE 72; RESP 16; TEMP 36.3; O2SAT 97
[2019-12-09 17:45] VITALS: BP 114/62; PULSE 70; RESP 16; TEMP 36.1
[2019-12-09 20:00] VITALS: BP 123/66; PULSE 76; RESP 16; TEMP 36.4; O2SAT 96
== END 2019-12-09 20:40 | disposition home or self-care (01) | DRG 807 ==
PROVIDERS: Admitting Provider Obstetrics & Gynecology; Referring Provider Obstetrics & Gynecology; Visit Provider Obstetrics & Gynecology
DX: O41.03X0 Oligohydramnios, third trimester, not applicable or unspecified (principal); Z37.0 Single live birth; O70.0 First degree perineal laceration during delivery; O36.8130 Decreased fetal movements, third trimester, not applicable or unspecified; Z3A.39 39 weeks gestation of pregnancy; Z87.891 Personal history of nicotine dependence
CPT/HCPCS: 59025; 59050; 85025; 86850; 86900; 86901; 99218; J7120; G0378

== ENCOUNTER → 2021-03-20 15:13 | Outpatient (CLI) | payer SELFPAY ==
[2021-03-20 15:53] LABS: Absolute Lymphocyte Count 1.75 X10^3/uL (0.83-4.51); Absolute Neutrophil Count 7.8 X10^3/uL (2.0-7.7); Basophil# 0.03 X10^3/uL; Basophil% 0.3 % (0-1); Eosinophil# 0.16 X10^3/uL; Eosinophils% 1.5 % (0-5); Hematocrit 36.2 % (37-47); Hemoglobin 12.1 g/dL (12.0-15.0); Lymphocyte # 1.75 X10^3/ul (0.83-4.51); Lymphocyte % 16.9 % (19-41); Mean Corp Hgb Conc 33.4 g/dL (32-36); Mean Corpuscular Hgb 28.1 pg (27.0-32.0); Mean Platelet Vol. 9.7 fl (6.2-12.0); Monocyte# 0.65 X10^3/uL; Monocyte% 6.3 % (0-10); NRBC Flagged by Analyzer 0 % (0-5); Neutrophil # 7.76 X10^3/uL (2.7-7.7); Neutrophil % 74.7 % (47-70); Platelet Count 284 K/mm3 (150-450); RBC Distribution Width CV 13.1 % (11.6-14.6); RBC Distribution Width SD 40.1 fl (35.1-43.9); Red Blood Count 4.31 M/mm3 (4.2-5.4); White Blood Count 10.4 K/mm3 (4.4-11.0)
[2021-03-20 15:54] LABS: Color, Urine Yellow (Yellow); Glucose, Dipstick Normal (Normal); Ketone-Dipstick Negative (Negative); Leukocyte Esterase-Dipstick 500 /ul (Negative); Nitrite-Dipstick Negative (Negative); Occult Blood-Urine Negative /ul (Negative); Protein-Dipstick Negative (Negative); Specific Gravity, Urine 1.015 (1.002-1.030); Urine Bilirubin Dipstick Negative (Negative); Urine Clarity Clear (Clear); Urine Urobilinogen Normal (Normal)
[2021-03-20 16:13] LABS: Thyroid Stim Hormone (TSH) 0.68 uIU/mL (0.358-3.74)
[2021-03-20 16:45] LABS: HIV - WCH Non-Reactive (Nonreactive); Hepatitis B Surface Antigen Non-Reactive (Nonreactive); Hepatitis C Antibody Non-Reactive (Nonreactive); Rubella IgG Reactive (Nonreactive); Syphilis Antibodies Non-reactive
[2021-03-23 03:06] LABS: Chlamydia By Nucleic Acid AMP Negative (Negative)
[2021-03-23 10:05] LABS: Gonococcus By Nucleic Acid AMP Negative (Negative)
== END ==
PROVIDERS: Visit Provider Obstetrics & Gynecology
DX: Z12.4 Encounter for screening for malignant neoplasm of cervix (principal); Z11.3 Encounter for screening for infections with a predominantly sexual mode of transmission; Z34.82 Encounter for supervision of other normal pregnancy, second trimester
CPT/HCPCS: 36415; 81002; 84443; 85025; 86703; 86762; 86780; 86803; 87340; 87491; 87591; 88175; G0145

== ENCOUNTER → 2021-05-10 10:28 | Outpatient (CLI) | payer SELFPAY ==
[2021-05-10 13:25] LABS: Hematocrit 35.2 % (37-47); Hemoglobin 11.7 g/dL (12.0-15.0); Mean Corp Hgb Conc 33.2 g/dL (32-36); Mean Corpuscular Hgb 28.6 pg (27.0-32.0); Mean Corpuscular Volume 86.1 fL (81-99); Mean Platelet Vol. 9.8 fl (6.2-12.0); Platelet Count 283 K/mm3 (150-450); RBC Distribution Width CV 13.7 % (11.6-14.6); RBC Distribution Width SD 42.2 fl (35.1-43.9); Red Blood Count 4.09 M/mm3 (4.2-5.4)
[2021-05-10 13:37] LABS: Glucose Challenge Gest 1H 50g 114 mg/dL (70-140)
== END ==
PROVIDERS: Visit Provider Obstetrics & Gynecology
DX: Z34.82 Encounter for supervision of other normal pregnancy, second trimester (principal)
CPT/HCPCS: 36415; 82950; 85027

== ENCOUNTER → 2021-07-17 | Outpatient (CLI) | payer SELFPAY | END | disposition home or self-care (01) | LOC: LABSPEC 15:45 | PROVIDERS: Visit Provider Obstetrics & Gynecology | DX: Z36.85 Encounter for antenatal screening for Streptococcus B (principal) | CPT/HCPCS: 87081 ==

== ENCOUNTER → 2021-08-14 15:33 | Outpatient (CLI) | payer SELFPAY | PROVIDERS: Visit Provider Obstetrics & Gynecology | DX: Z03.818 Encounter for observation for suspected exposure to other biological agents ruled out (principal) | CPT/HCPCS: 87635; U0005; U0003 ==

== ENCOUNTER 2021-08-18 17:15 | Inpatient (IN) | payer SELFPAY ==
[2021-08-18] VITALS (26 sets, daily range): BP systolic 97–157; BP diastolic 51–70; PULSE 99–130; TEMP 36.4–37.7; O2SAT 99–100; BMI 38.1
[2021-08-18 15:15] LABS: ROM Internal Control Test YES-OK TO RESULT pt. (Internal QC); ROM Patient Test Negative (Negative)
[2021-08-18] MEDS: Lactated Ringers 1,000 ML 50 ML IV (17:35)
[2021-08-18] MEDS: Lactated Ringers 500 ML 999 ML IV ×2 (17:43→21:48)
[2021-08-18 17:50] LABS: Absolute Lymphocyte Count 1.24 X10^3/uL (0.83-4.51); Absolute Neutrophil Count 15.5 X10^3/uL (2.0-7.7); Basophil# 0.03 X10^3/uL; Basophil% 0.2 % (0-1); Eosinophil# 0.03 X10^3/uL; Eosinophils% 0.2 % (0-5); Hematocrit 39.5 % (37-47); Hemoglobin 12.9 g/dL (12.0-15.0); Lymphocyte # 1.24 X10^3/ul (0.83-4.51); Lymphocyte % 6.9 % (19-41); Mean Corp Hgb Conc 32.7 g/dL (32-36); Mean Corpuscular Hgb 28.4 pg (27.0-32.0); Mean Corpuscular Volume 86.8 fL (81-99); Mean Platelet Vol. 9.4 fl (6.2-12.0); Monocyte# 1.13 X10^3/uL; Monocyte% 6.3 % (0-10); NRBC Flagged by Analyzer 0 % (0-5); Neutrophil # 15.52 X10^3/uL (2.7-7.7); Platelet Count 262 K/mm3 (150-450); RBC Distribution Width CV 13.5 % (11.6-14.6); Red Blood Count 4.55 M/mm3 (4.2-5.4)
[2021-08-18] MEDS: fentaNYL-bupivacaine (epidural) 100 ML BAG EPIDURAL ×2 (18:52→23:03)
--- NOTE | 2021-08-18 19:33 | PCM.HP.BLA ---
History and Physical Date of Admission: 08/18/21 ACOG ANTEPARTUM RECORD - HISTORY AND PHYSICAL (08/18/2021) Name: HENRIK ALEXANDER History of this : This is a 25 year old [id number] presents at 40 wks + 5 days gestation in active labor. OB Physician: Tanya Galvez MD 's Physician: Dr Tristan Larson ...................................................................... : 1995 Age: 25 Address: [address] [place] [address] Phone: (h) [phone] Insurance Carrier: Emergency Contact: NONE ...................................................................... Final MARY: 08/13/21 By Ultrasound: PARITY: (G-Total Pregnancies P-Fullterm,Premature,Induced AB,Spont AB, Ectopics, Multiple,Living) MARY CONFIRMATION: By LMP: 11/06/20 By First Ultrasound Exam: 12/09/19 Final MARY: 08/13/21 OB PROBLEM LIST: Declines Genetic Testing. FOB lara club feet w surgeries as baby. Aunt with Down's. Plans NO EPIDURAL ALLERGIES: No Known Drug Allergies MEDICATIONS: 28 mg-800 mcg tablet 1 PO QD Supplement (s) [No Strength] gentle SOCIAL HISTORY: Smoking - used to smoke but quit Alcohol Use - RARELY not while Diet - balanced Diet, occ coffee and water tries3-5 glasses day. Lifestyle - Exercise - Active w 3 yo and 15 mo old, home, garden, mowing. Employer - stays at home Job Description - Illicit Drug Use - denies use of street drugs Sexual Activity - Residence - rents Place of - [place] Spouse-Sig Other Name - Rory Spouse-Sig Other Occupation - [employer] Spouse-Sig Other Phone No - [phone] work contact Children Name(s) - Franc 04/03/18 ([facility]) PRIOR DELIVERY HISTORY DEL DATE GEST LAB WT LB WT OZ TYPE ANES LABOR TX 07 Apr 14 43 12 8 11 Vag Epidural No Dec 15 39 18 7 0 Vag Epidural No ANTEPARTUM FLOW CHART VISIT GE RTC FU F F RI U U DATE WK MD WKS HT PN HR M SS BP ED WT RI GL D EF ST __ ____ ___ __ __ ___ __ __ __ ___ __ __ __ ___ __ 17 Jul 40 SHM 1 40 V + + 110/68 sl 221 - - 1 50 -3 10 Nov 39 SHM 1 39 V + + 108/62 - 219 ne ne 1 0 -4 02 Nov 38 CM 1 39 V + + 118/80 0 219 - - 28 Oct 37 CM 1 37 V + + 102/76 0 217 - - 20 Oct 36 JMW 1 36 V + + 102/68 216 - - 1 50 hi 06 Jun SHM 2 34 V + + 110/70 0 212 tr - 22 Sep 32 SHM 2 32 V + + 116/60 0 210 tr - 08 May 30 SHM 2 30 + + 112/68 0 207 tr ne 13 May 23 SHM 3 26 ? + + 96/66 0 201 - - 14 Apr 18 SHM 4 22 ? + + 100/56 0 193 tr - ANTEPARTUM NOTE(S): Aug 14 2021: ok for membranes sweep Aug 07 2021: Jul 30 2021: see note Jul 25 2021: Jul 17 2021: GBS Today, LARC form signed/declined, Jul 03 2021: see note Jun 19 2021: feeling well. AM Jun 05 2021: No c/o. Doing well. May 10 2021: 1 hr GTT Apr 10 2021: feeling well. COMPREHENSIVE ANTEPARTUM NOTE(S): Aug 14 2021: Reviewed FM, labor, and SROM. Induction option reviewed and will discuss with Dr DE SANTIAGO. Ok for membrane sweep today. Induction scheduled for 08/20 at 7 am. Covid test completed. LMT Aug 07 2021: Cervix moderate and posterior. Membranes stripping deferred. Discussed elective IOL vs. expectant managment, pt opts for the latter. Jul 30 2021: Henrik is here for visit. She relates that she has noticed numbness to hands. Asking if it is anything to be concerned about? Advised not all that uncommon in late and very likely to resolve after delivery. If does not resolve she should see Ortho. Could consider adding wrist splints but 38 weeks now. Reviewed FM, SROM, and labor. Declines cervix ck today and will have this next Jul 30 2021: 38/0w. Discussed carpal tunnel and wrist splints. F/u 1w. CM Jul 25 2021: Henrik here for her PNV. FM good. Edema check good. No concerns or complaints today. CB Jul 25 2021: 37/2w. GBS neg. Feeling well. F/u 1w. CM Jul 24 2021: H taken to OB tkg Jul 03 2021: Reviewed FM, SROM, and labor. Declines Tdap, Influenza and Covid vaccines. LMT Jul 03 2021: Reviewed indications for flu and COVID vaccinations. Pt not interested at this time. Preeclampsia precautions reviewed. Jun 05 2021: No complaints. Plans NO EPIDURAL in labor. Discussed alternatives for labor analgesia. PTL, ROM, FM precautions. [place] for infant sleep. May 10 2021: Henrik is here for a PNV at 26 wks. Good FM. No edema present. No concerns expressed at this time. 1 hr GTT drawn today, pt is O+. MK Apr 10 2021: Anatomy scan today wnl, EFW 23rd%, MALE. FUNDAL PLACENTA. ok for vaginal delivery. No complaints. Labs reviewed and wnl, O positive, Rubella immune. NOB visit today. Glucola info given for next visit. NEW Apr 10 2021: NOB VISIT-- Henrik is here for her NOB visit at 22.1 w gestation w MARY 08-13-21 planning a vag del at [facility], unsure of epidural, using Dr Samantha Larson for post discharge ped care and to breastfeed. 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 Her , Rory works for [employer]. They're pleased about the pg. Henrik had NKAD or latex. She smoked as a teenager but not si Mar 20 2021: Henrik is here for missed menses. LMP 221 Office UPT +. 19w 1d MARY 08-13-21 First 2 pregnancies were vaginal deliveries. info packet given. Genetic packet given as well. Has no PAPs on record. Has started to feel FM just this past weekend. Had N/V early in but states she is over that and is feeling well. Otherwise, there have been no changes to her health si Mar 20 2021: as above. Reports occasional lower abdominal cramping. No nausea or vomiting. She had prior VAVD at 42wga and at 38wga. No recent travel or plans for travel. Has outdoor cats, no litter. shm REVIEW OF SYSTEMS: GENERAL - Denies fever, or chills SKIN - Denies rash, new skin lesions, or change in moles EYES - Denies blurred vision, or change in visual acuity EARS - Denies ear pain, or difficulty hearing NOSE - Denies nasal congestion, discharge, or bleeding MOUTH - Denies sore throat, or difficulty swallowing NECK - Denies pain or swelling RESPIRATORY - Denies shortness of breath, cough, wheezing CARDIOVASCULAR - Denies palpitations, chest pain, orthopnea, PND, peripheral edema, syncope or claudication GASTROINTESTINAL - Denies nausea, vomiting, diarrhea, constipation, Denies abdominal pain, melena and or bright red blood GENITOURINARY - Denies dysuria, frequency of urination, urgency, or hesitancy MUSCULOSKELETAL - Denies joint or muscle pain, or back pain NEUROLOGICAL - Denies localized numbness, weakness, or tingling PSYCHIATRIC - Denies depression, anxiety, substance abuse or suicide attempts ENDOCRINE - Denies heat or cold intolerance, weight loss or gain, increasing thirst HEMATO-IMMUNOLOGIC - Denies easy bruising, bleeding, oral ulcerations or recurrent infections GENETICS SCREENING: Age 35+ years: No Thalassemia: No Neural Tube Defect: No Down Syndrome: Yes Aunt MADELINE-SACHS: No Sickle Cell Disease: No Hemophilia: No Musc. Dystrophy: No Cystic Fibrosis: No-declines screening Purvis Chorea: No Mental Retardation: No Fragile X: No Other genetic: Yes, Fob lara club feet Other defects: Yes, Fob lara club feet SABs/still births: No Drugs since LMP: No INFECTION HISTORY: High risk AIDS: No High risk Hepatitis: No Exposed to TB: No Exposed to Herpes: No Rash/viral illness since LMP: No History of STD: No MENSTRUAL HISTORY: *Menses Amount/Duration: 4 daysMenses Regularity: RegularFrequency: monthly* PAST SUMMARY: PARITY: 1. Total Pregnancies............ 3 2. Full Term Pregnancies........ 2 3. Premature.................... 0 4. Abortions - Induced.......... 0 5. Abortions - Spontaneous...... 0 6. Ectopics..................... 0 7. Multiple Births.............. 0 8. Living Children.............. 2 PAST #1: Date of :.................. 04/03/18 Gestation Weeks:................ 43 Length of labor(hours):......... 12 Sex:............................ F Weight-lbs:............... 8 Weight-oz:................ 11 Type of Delivery:............... Vag Type of Anesthesia:............. Epidural Place of Delivery:.............. [place] Treatment of Labor?:.... No Comment: SL ANEMIA, IND. PAST #2: Date of :.................. 12/08/19 Gestation Weeks:................ 39 Length of labor(hours):......... 18 Sex:............................ M Weight-lbs:............... 7 Weight-oz:................ 0 Type of Delivery:............... Vag Type of Anesthesia:............. Epidural Place of Delivery:.............. [place] Treatment of Labor?:.... No Comment: IOL FOR OLIGO PHYSICAL EXAMINATION General Appearence: 25 yo female in no acute distress Vital Signs: AF, VSS Heart: RRR without rubs or gallops Lungs: CTA x 2 Breasts: deferred Abdomen: gravid Pelvis: Cervix: Presentation: cephalic Station: Fetus: Size: AGA Movement: present Heart: present LAB TEST(S) ORDERED SINCE:11/16/20 08/18/2021 TYPE AND SCREEN 08/18/2021 CBC W/DIFF, AUTOMATED 08/18/2021 (ROM) RUPTURE OF MEMBRANES 08/14/2021 COVID 19, YAZAN [facility](RT COLLECT) 07/20/2021 RULE OUT BETA STREP (GRP. B) 05/10/2021 GLUCOSE CHALLENGE GEST 1H 50G 05/10/2021 CBC-COMPLETE BLOOD CNT NO DIFF 03/27/2021 PAP TEST I-G 03/23/2021 CHLAMYDIA/GC YAZNA APTIMA 03/20/2021 URINALYSIS, ROUTINE (DIPSTICK) 03/20/2021 THYROID STIM HORMONE (TSH) 03/20/2021 RUBELLA IGG 03/20/2021 T AND S-NO CHARGE W/PNP 03/20/2021 L509.8000 03/20/2021 HIV - [facility] 03/20/2021 HEPATITIS C ANTIBODY 03/20/2021 HEPATITIS B SURFACE ANTIGEN 03/20/2021 CBC W/DIFF, AUTOMATED == ==== Order Observation Description Value Ref_Range A* Site == ==== Labor [facility]~[address], [address]~ TYPE AND SCRE AB SCREEN GEL NEGATIVE ML CBC W/DIFF, AUT NOTE HOWELL CBC W/DIFF, AUT WBC 18.0 K/mm3 4.4-11.0 H ML CBC W/DIFF, AUT RBC 4.55 M/mm3 4.2-5.4 ML CBC W/DIFF, AUT HGB 12.9 g/dL 12.0-15.0 ML CBC W/DIFF, AUT HCT 39.5 37-47 ML CBC W/DIFF, AUT MCV 86.8 fL 81-99 ML CBC W/DIFF, AUT MCH 28.4 pg 27.0-32.0 ML CBC W/DIFF, AUT MCHC 32.7 g/dL 32-36 ML CBC W/DIFF, AUT RDW CV 13.5 11.6-14.6 ML CBC W/DIFF, AUT RDW SD 42.0 fl 35.1-43.9 ML CBC W/DIFF, AUT PLT 262 K/mm3 150-450 ML CBC W/DIFF, AUT MPV 9.4 fl 6.2-12.0 ML CBC W/DIFF, AUT NEUT% 86.0 47-70 H ML CBC W/DIFF, AUT LY% 6.9 19-41 L ML CBC W/DIFF, AUT MONO% 6.3 0-10 ML CBC W/DIFF, AUT EO% 0.2 0-5 ML CBC W/DIFF, AUT BASO% 0.2 0-1 ML CBC W/DIFF, AUT IG% 0.400 0.0-0.9 ML IG% - Immature Granulocytes (promyelocytes, myelocytes and metamyelocytes) > 1% indicates that a LEFT SHIFT is Present. CBC W/DIFF, AUT ABSOLUTE NEUT 15.5 X10 3/uL 2.0-7.7 H ML CBC W/DIFF, AUT ABSOLUTE LYMPH 1.24 X10 3/uL 0.83-4.51 ML CBC W/DIFF, AUT NUCLEATED RBC 0 0-5 ML (ROM) RUPTURE O NOTE HOWELL (ROM) RUPTURE O ROM Negative Negative ML Amniotic fluid not present indicates No Rupture of Membranes at time of specimen collection. COVID 19, YAZAN NOTE HOWELL COVID 19, YAZAN COVID-19,YAZAN Not Detected Not Detect ML Normal Reference Range: Not Detected Method:(RT-PCR) real-time reverse transcriptase PCR [place] [facility] *The Food and Drug Administration (FDA) has issued an Emergency Use Authorization (EAU) for the [employer] SARS-CoV-2 Assay for the rapid detection of the virus that causes COVID-19. This test has been validated, but the FDAs independent review of this validation is pending. *Negative results do not preclude infection and should not be used as the sole basis for treatment or patient management. Optimum specimen types and timing for peak viral levels during infections caused by SARS-CoV-2 have not been determined. Collection of multiple specimens from the same patient may be necessary to detect the virus. The possibility of a false negative result should be considered if the patient has clinical presentation or has had recent exposure. RULE OUT BETA S NOTE HOWELL GLUCOSE CHALLEN NOTE HOWELL GLUCOSE CHALLEN GLU GEST 50G 1H 114 mg/dL 70-140 ML CBC-COMPLETE BL NOTE HOWELL CBC-COMPLETE BL WBC 10.0 K/mm3 4.4-11.0 ML CBC-COMPLETE BL RBC 4.09 M/mm3 4.2-5.4 L ML CBC-COMPLETE BL HGB 11.7 g/dL 12.0-15.0 L ML CBC-COMPLETE BL HCT 35.2 37-47 L ML CBC-COMPLETE BL MCV 86.1 fL 81-99 ML CBC-COMPLETE BL MCH 28.6 pg 27.0-32.0 ML CBC-COMPLETE BL MCHC 33.2 g/dL 32-36 ML CBC-COMPLETE BL RDW CV 13.7 11.6-14.6 ML CBC-COMPLETE BL RDW SD 42.2 fl 35.1-43.9 ML CBC-COMPLETE BL PLT 283 K/mm3 150-450 ML CBC-COMPLETE BL MPV 9.8 fl 6.2-12.0 ML PAP TEST I-G NOTE HOWELL PAP TEST I-G DIAG Comment . [facility] NEGATIVE FOR INTRAEPITHELIAL LESION OR MALIGNANCY. CELLULAR CHANGES ASSOCIATED WITH INFLAMMATION ARE PRESENT. PAP TEST I-G ADEQ Comment . [facility] Satisfactory for evaluation. Endocervical and/or squamous metaplastic cells (endocervical component) are present. PAP TEST I-G PERFORM Comment . [facility] [employer], Director Financial Services (ASCP) This liquid based ThinPrep(R) pap test was screened with the use of an image guided system. Performed at: - Lab[address] [id number] Information Technology Coordinator: Allie Vela MD, Phone: [phone] PAP TEST I-G COMM . . [facility] PAP TEST I-G PAPSMR Comment . [facility] The Pap smear is a screening test designed to aid in the detection of premalignant and malignant conditions of the uterine cervix. It is not a diagnostic procedure and should not be used as the sole means of detecting cervical cancer. Both false-positive and false-negative reports do occur. CHLAMYDIA/GC NA NOTE HOWELL CHLAMYDIA/GC NA CHLAMY,NUC ACID Negative Negative [facility] CHLAMYDIA/GC NA GC BY NUC ACID Negative Negative [facility] Performed at: =[facility] [id number] Information Technology Coordinator: Allie Vela MD, Phone: [phone] HEPATITIS C ANT NOTE HOWELL HEPATITIS C ANT HEPATITIS C AB Non-Reactive Nonreactive ML Non Reactive: < 0.8 Equivocal: >/= 0.8 to < 1.0 Reactive: >/= 1.0 The CDC recommends that a reactive/equivocal HCV antibody result be followed up by the HCV Nucleic Acid Amplification test (216202) HEPATITIS B ABHISHEK NOTE HOWELL HEPATITIS B ABHISHEK HEP B SURF AG Non-Reactive Nonreactive ML HIV - [facility] NOTE HOWELL HIV - [facility] HIV Non-Reactive Nonreactive ML L509.8000 NOTE HOWELL L509.8000 SYPHILIS ABS Non-reactive ML RUBELLA IGG NOTE HOWELL RUBELLA IGG RUBELLA IGG Reactive Nonreactive ML Antibody Results Interpretation of Immune Status Non Reactive Presumed Non-Immune Equivocal Equivocal Reactive Presumed Immune CYTOLOGY INFORMATION: - CLINICAL INFORMATION: - DATE LMP/MENOPAUSE: [id number] LMP - COLLECTION VIAL: Thin Prep Vial - FURNACE COOLER SOURCE: CERVICAL/ENDOCERVICAL - COLLECTION TECHNIQUE: BRUSH/SPATULA PN N [facility]~[address], [address]~ T AND AB SCREEN GEL NEGATIVE ML THYROID STIM HO NOTE HOWELL THYROID STIM HO TSH 0.68 uIU/mL 0.358-3.74 ML URINALYSIS, ROU NOTE HOWELL URINALYSIS, ROU COLOR Yellow Yellow ML URINALYSIS, ROU URINE CLARITY Clear Clear ML URINALYSIS, ROU GLUCOSE, UR Normal mg/dl Normal ML URINALYSIS, ROU BILIRUBIN URINE Negative mg/dL Negative ML URINALYSIS, ROU KETONE UR Negative mg/dl Negative ML URINALYSIS, ROU SP.GR. DIPSTX 1.015 1.002-1.030 ML URINALYSIS, ROU PH UR 7.0 5.0 - 8.0 ML URINALYSIS, ROU PROT DIPSTX Negative mg/dl Negative ML URINALYSIS, ROU UROBILI Normal mg/dl Normal ML URINALYSIS, ROU NITRITE Negative Negative ML URINALYSIS, ROU OCCULT BLOOD-UR Negative /ul Negative ML URINALYSIS, ROU LEUK ESTERASE 500 /ul Negative A ML CBC W/DIFF, AUT NOTE HOWELL CBC W/DIFF, AUT WBC 10.4 K/mm3 4.4-11.0 ML CBC W/DIFF, AUT RBC 4.31 M/mm3 4.2-5.4 ML CBC W/DIFF, AUT HGB 12.1 g/dL 12.0-15.0 ML CBC W/DIFF, AUT HCT 36.2 37-47 L ML CBC W/DIFF, AUT MCV 84.0 fL 81-99 ML CBC W/DIFF, AUT MCH 28.1 pg 27.0-32.0 ML CBC W/DIFF, AUT MCHC 33.4 g/dL 32-36 ML CBC W/DIFF, AUT RDW CV 13.1 11.6-14.6 ML CBC W/DIFF, AUT RDW SD 40.1 fl 35.1-43.9 ML CBC W/DIFF, AUT PLT 284 K/mm3 150-450 ML CBC W/DIFF, AUT MPV 9.7 fl 6.2-12.0 ML CBC W/DIFF, AUT NEUT% 74.7 47-70 H ML CBC W/DIFF, AUT LY% 16.9 19-41 L ML CBC W/DIFF, AUT MONO% 6.3 0-10 ML CBC W/DIFF, AUT EO% 1.5 0-5 ML CBC W/DIFF, AUT BASO% 0.3 0-1 ML CBC W/DIFF, AUT IG% 0.300 0.0-0.9 ML IG% - Immature Granulocytes (promyelocytes, myelocytes and metamyelocytes) > 1% indicates that a LEFT SHIFT is Present. CBC W/DIFF, AUT ABSOLUTE NEUT 7.8 X10 3/uL 2.0-7.7 H ML CBC W/DIFF, AUT ABSOLUTE LYMPH 1.75 X10 3/uL 0.83-4.51 ML CBC W/DIFF, AUT NUCLEATED RBC 0 0-5 ML O POSITIVE Group B Beta Streptococcus is not isolated. O POSITIVE == ==== Impression /Plan: 40 wks + 5 days intrauterine in active labor with cervix /-2 with BBOW. AROM scant. Preparations in progress for delivery.
[2021-08-18] MEDS: Oxytocin 30 units/NS 500 ml 30 UNITS/500 ML IV.SOLN IV (21:48)
[2021-08-18] MEDS: Lactated Ringers 1,000 ML 200 ML IV (23:03)
[2021-08-19] VITALS (34 sets, daily range): BP systolic 94–203; BP diastolic 41–120; PULSE 70–125; RESP 16; TEMP 35.9–38.3; O2SAT 96–100
[2021-08-19] MEDS: 0.9% Normal Saline 250 ML IV.SOLN. INTRA-UTER (01:20)
[2021-08-19] MEDS: Lactated Ringers 500 ML 999 ML IV (02:15)
[2021-08-19] MEDS: fentaNYL-bupivacaine (epidural) 100 ML BAG EPIDURAL (03:51)
[2021-08-19] MEDS: Lactated Ringers 1,000 ML 200 ML IV (04:41)
[2021-08-19] MEDS: Oxytocin 30 units/NS 500 ml 30 UNITS/500 ML IV.SOLN 334 UNITS IV (05:16)
--- NOTE | 2021-08-19 05:24 | EX.PCM.OBRPT ---
Maternal Data Information Final MARY: 08/13/21 Final MARY Source: US <20 weeks Gestational age: 40 weeks 6 days Doctor Who Attended Delivery: Destinee Zelaya Vaginal Delivery Maternal Presentation Maternal Presentation: Active Labor Operative Information Date of Procedure: 08/19/21 Pre-Operative Diagnosis: IUP Post-Operative Diagnosis: IUP Surgery / Procedure Performed: Spontaneous Vaginal Delivery Type of Anesthesia: Epidural Estimated Blood Loss: 250 cc Fluids Replaced: Crystalloid Findings Description of Procedure: Spontaneous vaginal delivery of a viable male infant with Apgars of 7/9 from an occiput anterior presentation with lightly meconium stained fluid and a three-vessel umbilical cord. Placenta was lightly meconium stained. Cord across the shoulder tight. No episiotomy or lacerations. Sponges okay. Delivery physician: Toribio Bruno MD. Presentation: Vertex Amniotic Membrane Rupture Type: Artificial Amniotic Fluid Description: Foul-odor and Lightly stained meconium Placental Delivery Description: Spontaneous Placenta Disposition: [facility] Cord Vessel Description: 3 Vessels Cord Entanglement: - (Across shoulder tight) A Gender: Male (1 minute): 7 (5 minute): 9 Post Vaginal Delivery Medications Given After Delivery: IV Pitocin Episiotomy Description: None Laceration: None Complication Complications: None
[2021-08-19] MEDS: 0.9% Saline Lock 10 ML Syringe IV (08:25)
--- NOTE | 2021-08-19 09:56 | NURSING ---
Voided qs - mod amount - not measured by pt.
[2021-08-19] MEDS: Acetaminophen 500 MG Tablet 1000 MG PO (11:14)
[2021-08-19] MEDS: Ibuprofen 600 MG Tablet PO (12:33)
[2021-08-20 04:16] VITALS: BP 112/62; PULSE 81; RESP 16; TEMP 35.8; O2SAT 95
[2021-08-20 08:39] VITALS: BP 114/67; PULSE 80; RESP 16; TEMP 36.4
--- NOTE | 2021-08-20 09:04 | PCM.PN.OB ---
Subjective Subjective No issues overnight. Has mild cramping, but manageable. Denies heavy lochia. No voiding difficulties. She feels well and is . Her is receiving antibiotics for fever. Objective Data Objective Data Vital Signs: Vital Signs Temp Pulse Resp BP Pulse Ox 97.6 F L 80 16 114/67 95 08/20/21 08:39 08/20/21 08:39 08/20/21 08:39 08/20/21 08:39 08/20/21 04:16 Oxygen Delivery Method Room Air Weight: 98.5 kg Body Mass Index (BMI) 38.1 Intake & Output: Intake and Output for Last 24 Hours 08/18/21 08/19/21 08/20/21 23:59 23:59 23:59 Intake Total 2106.67 / 2106.67 3059.33 / 3059.33 Output Total 1600 / 1600 Balance 2106.67 / 2106.67 1459.33 / 1459.33 Lab / Micro Data Result Diagrams: 08/18/21 17:35 Physical Exam Const alert, oriented x3 and no apparent distress Resp normal respiratory effort and normal air movement Cardio regular rate, regular rhythm, S1 normal heart sound and S2 normal heart sound Uterus Palpation: uterus fundus firm and other OB fundus nontender Extremity no calf tenderness Extremity Narrative: trace b/l LE edema Neuro oriented x3 Assessment & Plan (1) (spontaneous vaginal delivery): PLAN: Rh positive Routine care Tm 100.9 immediately after delivery and patient ruptured. No evidence of infection and > 24h . D/C home later today or tomorrow pending infant discharge
--- NOTE | 2021-08-20 09:11 | PCM.DC ---
Discharge Instructions Diet Discharge Diet: No restrictions Activity Discharge Activity: Return to Normal Activity May resume sexual activity in: 4-6 weeks Lifting Restrictions: 20-25lb Dressing / Incision Call your doctor if you observe: Fever of 101 or Higher, Using more than 1 pad per hour, Shortness of breath, Chest pain, Calf discomfort, Uncontrolled pain and - (Persistent or severe headache) Follow Up Care Please Follow Up With: Tanya Galvez MD When: 3 weeks for telehealth follow up 6 weeks for visit Test Results: Test results from this visit will be discussed in further detail at your follow-up appointment, if applicable. Discharge Plan Admission Admit Date/Time: 08/18/21 17:15 Primary Reason for Your Visit: Vaginal delivery Attending Provider: Toribio Bruno Primary Care Provider: Care Physician,No Primary Instructions Patient Instructions: Depression Discharge Orders/Prescriptions Prescriptions: New ibuprofen 600 mg Tablet 600 mg PO Q8H PRN PRN (Reason: Pain Score 1-3) Qty: 30 RF: 0 Continued Prenatabs FA 1 TABLET tablet 1 tab PO 4X/DAY RF: 0 Referrals / Follow Up: Care Physician,No Primary [Primary Care Provider] - Disposition Disposition (needs filled in before D/C Order can be placed): Home, Self Care
[2021-08-20 14:40] VITALS: BP 113/70; PULSE 80; RESP 16; TEMP 36.3
[2021-08-20 19:35] VITALS: BP 113/72; PULSE 83; RESP 18; TEMP 36.3
== END 2021-08-20 20:14 | disposition home or self-care (01) | DRG 807 ==
LOC: WPOUT 17:20 → WP 17:20
PROVIDERS: Admitting Provider Obstetrics & Gynecology; Visit Provider Obstetrics & Gynecology
DX: O77.0 Labor and delivery complicated by meconium in amniotic fluid (principal); O69.2XX0 Labor and delivery complicated by other cord entanglement, with compression, not applicable or unspecified; Z37.0 Single live birth; Z3A.40 40 weeks gestation of pregnancy; Z87.891 Personal history of nicotine dependence
CPT/HCPCS: 59025; 59050; 84112; 85025; 86850; 86900; 86901; 99218; J7050; J7120; A4216; G0378